=== PATIENT | male | born 2000 | race Caucasian/White ===

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

== ENCOUNTER → 2021-12-12 | Outpatient (CLI) | payer OTHER ==
[~2021-12-12] MED LIST changes: +IOHEXOL 240 MG/ML 50ML VIAL. IV ONE; +IOHEXOL 300 MG/ML 75 ML VIAL. IV ONE
--- NOTE | 2021-12-12 10:19 | RAD ---
INDICATION: Reason: GENERALIZED ABD PAIN, GAS, HX HIATAL/UMBILICAL HERNIA A CHILD / Spl. Instructi ons: OMNI 300 75ML, OMNI 240 30ML - VOMITED ALL OF ORAL / History: COMPARISON: January 2016 TECHNIQUE: Axial CT images were obtained through the abdomen and pelvis with and without intravenous contrast. One or more of the following individualized dose reduction techniques were utilized for this examinat ion: 1. Automated exposure control; 2. Adjustment of the mA and/or kV according to patient size; 3 . Use of iterative reconstruction technique. FINDINGS: Vascular: No abdominal aortic aneurysm. Hepatobiliary: No intrahepatic biliary duct dilation. Pancreas: No peripancreatic edema. Spleen: Spleen unremarkable. Renal/Bladder: No hydronephrosis. Multiple calcifications at the bilateral kidneys which could be fro m nonobstructive stone. Urinary bladder largely decompressed. A low-density lesion is seen at the lef t kidney measuring 14 mm Gastrointestinal: The appendix does not appear inflamed. No dilated loops of bowel to suggest obstruc tion. Pars defect L5. Grade 1 anterolisthesis of L5 on S1. IMPRESSION: * Nonobstructive renal stones without hydronephrosis. * No evidence of bowel obstruction or appendicitis. * Low-density lesion in the left kidney. Most commonly benign in a patient of this age from causes s uch as cyst formation. * Urinary bladder wall is mildly prominent which could be from lack of distention but would correlat e with symptoms to ensure there is not a superimposed acute cause such as cystitis. Electronically signed by: Juan Lock MD (12/12/2021 10:17 AM) [id number]
== END ==
LOC: CT 08:04
PROVIDERS: ATTEND Family Medicine
DX: N20.0 Calculus of kidney (principal); N28.89 Other specified disorders of kidney and ureter; M43.16 Spondylolisthesis, lumbar region; K59.00 Constipation, unspecified; R14.1 Gas pain
CPT/HCPCS: 74178; Q9967